=== PATIENT | male | born 1965 | race Caucasian/White ===

== ENCOUNTER → 2018-04-21 | Day surgery (SDC) | payer BC ==
[~2018-04-21] MED LIST: ALBUTEROL SULFATE 2.5 MG/3 ML NEBU. NEB PRN; ATROPINE 0.5 MG/5 ML DISP.SYRIN. IV PRN; IV RINGERS SOLUTION,LACTATED 1,000 ML IV SCH; LIDOCAINE 2% PF Vial for OR 5 ML VIAL. ONE; NALOXONE 0.4 MG/ML VIAL. IV PRN; ONDANSETRON PF 4 MG/2 ML VIAL. IV PRN; PROPOFOL 20 ML IV ONE; diphenhydrAMINE 50 MG/ML VIAL IV PRN
[2018-04-21 10:27] VITALS: BP 133/82
== END | disposition home or self-care (01) ==
LOC: SURG 08:40
PROVIDERS: ATTEND Internal Medicine Gastroenterology
DX: Z12.11 Encounter for screening for malignant neoplasm of colon (principal); D12.4 Benign neoplasm of descending colon; D12.3 Benign neoplasm of transverse colon; K57.30 Diverticulosis of large intestine without perforation or abscess without bleeding; Z90.49 Acquired absence of other specified parts of digestive tract
CPT/HCPCS: 45385; J2704; J7120; J2001